=== PATIENT | female | born 1995 | race Caucasian/White ===

== ENCOUNTER 2024-03-18 03:03 | Inpatient (IN) ==
[2024-03-18] MEDS ORDERED: OXYTOCIN 30 UNITS/NSS 30 UNITS/500 ML BAG IV PRN ×2 (04:09→10:19)
[2024-03-18] MEDS ORDERED: LIDOCAINE 1% LOCAL 20 ML VIAL INFIL PRN (04:09)
--- NOTE | 2024-03-18 04:16 | History & Physical Report ---
Date of Service March 18, 2024 Assessment & Plan (1) SROM (spontaneous rupture of membranes): (2) Gestational diabetes: (3) Encounter for supervision of normal in multigravida: Plan 28 yo at 38 4/7 wga presents w/ srom VSS Fetus cat 1 Labor - can augment prn, ?if forebag palpated so could re-examine after walking a bit and admitted to see if will continue to progress A1GDM - bg q4, q2 in active GBS neg epidural prn History of Present Illness Chief Complaint: lof Primary Care Provider: NO PCP 28 yo at 38 4/7 wga presents w/ LOF since 2am. Mild ctx since and continued LOF. 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 current denies hx stis Allergies Allergy/AdvReac Type Severity Reaction Status Date / Time No Known Allergies Allergy Verified 03/17/24 11:13 Home Medications Medication Instructions Recorded Confirmed Type docosahexaenoic acid [ DHA] PO 01/21/24 03/17/24 History Patient History Medical History (Updated 03/18/24 @ 04:14 by Annita Fu MD) Varicella vaccine Family History (Updated 07/25/23 @ 10:06 by Radha Adler, RN) Denies family history of Ovarian cancer Prostate cancer Breast cancer Social History (Updated 07/25/23 @ 10:07 by Radha Adler, NARENDRA) Smoking Status: Never smoker Do You Dip or Chew Tobacco: No; marital status: marital status details: Duc Day (32) [phone] Current Living Situation: Family Current Living Situation Comment: lives with spouse, daughter, no pets current occupational status: unemployed Physical Exam Genitourinary: Manual OB Exam: + cervical dilation 3 cm, + cervical effacement 90%, + station -2 and + amniotic fluid (+nitrazine, pooling, ferning) clear OB Exam Monitor Tracing: + external FHT monitor used, + external uterine monitor used (irreg ctx) and + category I (130/mod/+accel/-decel) Results & Data Laboratory Results OB Labs: Blood Type O Positive 08/11/23 Antibody Screen NEGATIVE 08/11/23 Hemoglobin 13.0 g/dl (12.0-16.0) 08/11/23 Hematocrit 42.6 % (37.0-47.0) 08/11/23 Mean Corpuscular Volume 78.3 fL (80.0-100.0) L 08/11/23 Platelet Count 370 K/uL (130-400) 08/11/23 Rubella IgG Antibody Immune (Immune) 08/11/23 Rapid Plasma Reagin Nonreactive (Nonreactive) 08/11/23 Hepatitis B Surface Antigen. NON-REACTIVE (NON-REACTIVE) 08/11/23 Hepatitis C Antibody (EIA) NON-REACTIVE (NON-REACTIVE) 08/11/23 HIV (1&2) Ag and Ab Confirmation NON-REACTIVE (NON-REACTIVE) 08/11/23 Glucose 1 Hour 50 gm Load 195 mg/dl (70-130) H 10/29/23 OB Optional Labs: Chlamydia trachomatis RNA Not Detected (NotDetected) 08/11/23 Neisseria gonorrhoeae RNA Not Detected (NotDetected) 08/11/23 Labs Reviewed: Declines genetics--mln declines afp--[facility] failed all three values of 2 hr gtt--[facility] gbs neg--[facility] Diagnostic Findings 03/03 EFW 45%, AC 17% Coding Level of Care Code None Diagnoses SROM (spontaneous rupture of membranes) Gestational diabetes O24.419 Encounter for supervision of normal in multigravida Z34.80
[2024-03-18] MEDS: LACTATED RINGER'S 1,000 ML IV PRN (05:00)
[2024-03-18 05:03] LABS: Hematocrit (blood only) 32.6 % (37.0-47.0); Hemoglobin 9.8 g/dl (12.0-16.0); Mean Corpuscular Hemoglobin 20.4 pg (25.0-34.0); Mean Corpuscular Hgb Conc 30.1 g/dL (32.0-36.0); Mean Corpuscular Volume 67.9 fL (80.0-100.0); Mean Platelet Volume 11.2 fL (9.4-12.4); Platelet Count 273 K/uL (130-400); RDW Coefficient of Variation 17.5 % (11.5-14.5); RDW Standard Deviation 41.4 fL (36.4-46.3); White Blood Count 9.89 K/ul (4.8-10.8)
[2024-03-18] MEDS ORDERED: SODIUM CHLORIDE 0.9% PF INJ 10 ML VIAL EPI STA (05:57)
[2024-03-18] MEDS ORDERED: diphenhydrAMINE 50 MG/ML VIAL IV PRN (05:57)
[2024-03-18] MEDS ORDERED: fentaNYL citrate PF 100 MCG/2 ML VIAL EPI PRN (05:57)
[2024-03-18] MEDS ORDERED: ePHEDrine sulfate 50 MG/ML AMP IV PRN (05:57)
[2024-03-18] MEDS ORDERED: SODIUM CHLORIDE 0.9% PF INJ 10 ML VIAL EPI PRN (05:57)
[2024-03-18] MEDS ORDERED: BUPIVACAINE 0.25% PF 30 ML VIAL EPI PRN (05:57)
[2024-03-18] MEDS ORDERED: NALOXONE HCL 0.4 MG/1 ML VIAL/CARP IV PRN (05:57)
[2024-03-18] MEDS ORDERED: ROPIVACAINE 0.5% PF 5 MG/ML 20 ML VIAL EPI PRN (05:57)
[2024-03-18] MEDS ORDERED: LIDOCAINE 2% MPF LOCAL 5 ML VIAL EPI PRN (05:57)
[2024-03-18] MEDS ORDERED: NALOXONE HCL 1 MG in SODIUM CHLORIDE 0.9% 1,000 ML IV PRN (05:57)
[2024-03-18] MEDS ORDERED: ONDANSETRON INJ 2 MG/ML 2 ML VIAL IV PRN (05:57)
[2024-03-18] MEDS ORDERED: NALBUPHINE HCL INJ 10 MG/ML AMP IV PRN (05:57)
--- NOTE | 2024-03-18 05:57 | Anesthesiology Consultation ---
Date of Service March 18, 2024 Assessment & Plan ASA ASA2 Proposed Anesthesia Anesthesia Type: Labor Epidural Risk / Benefits Reviewed With: PT / POA / Parent / Guardian, Accepts Plan and Informed Consent Obtained History Height/Weight Height: 5 ft 6 in Weight: 92.986 kg Allergies Allergy/AdvReac Type Severity Reaction Status Date / Time No Known Allergies Allergy Verified 03/17/24 11:13 Medications Home Medications Medication Instructions Recorded Confirmed Last Taken vits no.124-ferrous fum 1 tab PO DAILY 03/18/24 03/18/24 03/16/24 27 mg iron-folic acid 800 mcg tablet ( Vitamin) Active Medications Generic Name Dose Route Start Last Admin Trade Name Freq PRN Reason Stop Dose Admin Fentanyl/Bupivacaine/Sodium Chlor 100 ml 03/18/24 05:57 03/18/24 06:22 Fentanyl 2 Mcg/Ml Bupivacaine 0.125%-Nss 100ml Bag EPI 03/19/24 05:56 100 ml PRN PRN Administration Pain R/T Labor Protocol Lactated Ringer's 1,000 mls @ 125 mls/hr 03/18/24 04:09 03/18/24 05:25 Lr IV 03/20/24 04:08 999 mls/hr .Q8H PRN Infusion L&D Protocol Protocol Past Medical History Medical History Varicella vaccine Exercise / Class Metabolic Activity II 4-5 Yardwork/Stairs/Walk up hill Past Family History Family History Denies family history of Ovarian cancer Prostate cancer Breast cancer Past Anesthesia History No Hx of Anesthesia Complications and No Family Hx of Anesthesia Complications History of PONV No Hx of PONV and No Hx of Motion Sickness Social History Smoking Status: Never smoker Do You Dip or Chew Tobacco: No Hx Alcohol Use: No Hx Substance Use: No Review of Systems denies fever/cough/ colds/ chest pain/ SOB/ ARTEM denies ARTEM Physical Exam Vital Signs Last Vital Signs Temp 36.9 C 03/18/24 04:57 Pulse 101 H 03/18/24 06:29 Resp 18 03/18/24 04:57 BP 111/71 03/18/24 06:29 Pulse Ox 99 03/18/24 06:29 ENMT Mouth: no TMJ abnormality and no dentition abnormality Thyromental Distance: > or= 3.5 Finger Breadths Mallampati Class: II Neck neck extension not limited Respiratory normal respiratory effort; no respiratory distress Auscultation: lungs clear to auscultation bilaterally Cardiovascular Rate/Rhythm: regular rate and regular rhythm Neurologic moves all extremities Psychiatric Orientation: alert and oriented x 3 Testing Laboratory Results 03/18/24 04:23 03/18/24 05:52 POC Glucose 122 H
[2024-03-18] MEDS: LIDOCAINE 2%/EPINEPHRINE 1:200,000 20 ML PF EPI STA (06:21)
[2024-03-18] MEDS: fentaNYL citrate PF 100 MCG/2 ML VIAL EPI STA (06:21)
[2024-03-18] MEDS: BUPIVACAINE 0.25% PF 30 ML VIAL EPI STA (06:21)
[2024-03-18] MEDS: fentANYL 2 MCG/ML BUPIVacaine 0.125%-NSS 100ML BAG EPI PRN (06:22)
--- NOTE | 2024-03-18 07:31 | Labor Progress Brief Note ---
Date of Service March 18, 2024 Subjective comfortable w/ epidural Assessment & Plan (1) SROM (spontaneous rupture of membranes): (2) Gestational diabetes: (3) Encounter for supervision of normal in multigravida: Plan 28 yo at 38 4/7 wga presents w/ srom VSS Fetus cat 1 Labor - good progress spontaneously, augment prn A1GDM - bg q4, q2 in active GBS neg epidural in place Admission and Anticipated Discharge Date Admission Date: March 18, 2024 Physical Exam Genitourinary: Manual OB Exam: + cervical dilation 5 cm, + cervical effacement 90% and + station 0 OB Exam Monitor Tracing: + external FHT monitor used, + external uterine monitor used (q5) and + category I (140/mod/+accel/early decel) Results & Data Vital Signs (Past 12 Hours) Vital Signs Temp Pulse Resp BP Pulse Ox 03/18/24 07:24 94 H 100 03/18/24 07:22 96 H 114/70 03/18/24 07:19 92 H 99 03/18/24 07:14 90 99 03/18/24 07:09 103 H 100 03/18/24 07:06 96 H 116/76 03/18/24 07:05 16 03/18/24 07:05 97.7 F 16 03/18/24 07:04 93 H 99 03/18/24 07:00 18 03/18/24 07:00 18 03/18/24 06:59 101 H 99 03/18/24 06:54 103 H 98 03/18/24 06:50 93 H 115/72 03/18/24 06:49 91 H 98 03/18/24 06:44 95 H 98 03/18/24 06:39 93 H 99 03/18/24 06:35 96 H 122/74 03/18/24 06:34 109 H 99 03/18/24 06:33 100 H 123/68 03/18/24 06:31 103 H 120/66 03/18/24 06:29 101 H 111/71 99 03/18/24 06:27 109 H 108/66 03/18/24 06:25 111 H 102/61 03/18/24 06:24 107 H 100 03/18/24 06:23 98 H 112/64 03/18/24 06:21 107 H 108/66 03/18/24 06:19 98 H 118/67 99 03/18/24 06:17 105 H 132/97 03/18/24 06:14 103 H 03/18/24 06:14 99 H 129/92 100 03/18/24 06:09 101 H 100 03/18/24 06:08 101 H 138/100 03/18/24 04:57 98.4 F 18 Coding Level of Care Code None Diagnoses SROM (spontaneous rupture of membranes) Gestational diabetes O24.419 Encounter for supervision of normal in multigravida Z34.80
[2024-03-18] MEDS: OXYTOCIN 30 UNITS/NSS 30 UNITS/500 ML BAG IV PRN (09:52)
--- NOTE | 2024-03-18 10:10 | Delivery Summary ---
Vaginal Delivery Summary Date of Service March 18, 2024 Vaginal Delivery Summary and 2nd Degree LAC Pre-operative Diagnosis: at 38 weeks labor gdm Post-operative Diagnosis: same Procedure: epidural rom second degree laceration and repair QBL: 60cc Anesthesia: epidural Procedure: The patient presented to labor and delivery in active labor. Underwent epidural and rom. She progressed to c/c/+2. The patient pushed for about 20 minutes to deliver a viable male infant in cherelle position. The nose and mouth were bulb suctioned on the perineum and the rest of the infant was then delivered without difficulty. The baby was vigorous. The nose and mouth were again bulb suctioned and the infant was placed in the maternal abdomen for drying and attention. Cord was clamped and cut at one minute. Cord blood and segment obtained. Placenta delivered spontaneous, intact with a three vessel cord. Cervix/sulci/rectum were intact. A second degree perineal laceration was repaired in the normal standard fashion. Hemostasis obtained with dilute pitocin and fundal massage. Apgars were 8/9. Mother and baby doing well at the end of the delivery[place] [facility] [place] Delivery Type Details: and 2nd Degree LAC
[2024-03-18] MEDS ORDERED: oxyCODONE/ACETAMINOPHEN 5mg/325mg TAB PO PRN (10:19)
[2024-03-18] MEDS ORDERED: ACETAMINOPHEN 325 MG TAB PO PRN (10:19)
[2024-03-18] MEDS ORDERED: HYDROCORTISONE ACETATE 25 MG SUPP PR PRN (10:19)
[2024-03-18] MEDS ORDERED: BENZOCAINE 20% SPRY 85 APPLN/85 GM CAN EXT PRN (10:19)
[2024-03-18] MEDS ORDERED: bisacodyL 10 MG SUPP PR PRN (10:19)
[2024-03-18] MEDS ORDERED: DIPHTHER/TETAN/PERTUS Vaccine (Tdap, Adol/Adult) 0.5mL IM ONE (10:19)
[2024-03-18] MEDS: fentaNYL citrate PF 100 MCG/2 ML VIAL ONE (10:37)
[2024-03-18] MEDS: BUPIVACAINE 0.25% PF 30 ML VIAL ONE (10:37)
[2024-03-18] MEDS: ePHEDrine sulfate 50 MG/ML AMP ONE (10:45)
[2024-03-18] MEDS: fentANYL 2 MCG/ML BUPIVacaine 0.125%-NSS 100ML BAG ONE (10:46)
[2024-03-18] MEDS: SODIUM CHLORIDE 0.9% PF INJ 10 ML VIAL ONE (10:46)
[2024-03-18] MEDS: LIDOCAINE 2%/EPINEPHRINE 1:200,000 20 ML PF ONE (10:46)
[2024-03-18] MEDS: IBUPROFEN 600 MG TAB PO PRN (20:38)
[2024-03-18] MEDS: DOCUSATE SODIUM 100 MG CAP PO SCH (20:38)
[2024-03-18 23:05] VITALS: O2SAT 98
--- NOTE | 2024-03-19 07:11 | Obstetrical Progress Note ---
Date of Service March 19, 2024 Assessment & Plan (1) SROM (spontaneous rupture of membranes): (2) Encounter for supervision of normal in multigravida: (3) care and examination: Plan PPD#1: Stable, continue routine care, continue OOB and ambulation, diet as tolerated Rh+, gbs -, ri Admission and Anticipated Discharge Date Admission Date: March 18, 2024 Supervising Physician Co-Signing Physician Notes Resident Physician Supervision Note: I interviewed and examined the patient. Discussed with Dr. Alvarenga and agree with findings and plan as documented in the note. Any exceptions or clarifications are listed here: Doing well this am. Routine care. PLan d/c tomorrow. Documented By: Sherri Molina MD, FACOG Subjective Tamiko is a 28yo who is PPD#1 following at 38 weeks. She reports minimal pain/abdominal cramping. She has been eating, drinking, ambulating, and urinating normally. Having appropriate lochia. Currently breast feeding but has concerns about her milk supply, as compared to her prev . Review of Systems 2 Constitutional: no fever, no chills and no sweats Respiratory: no dyspnea Cardiovascular: no chest pain, no palpitations and no calf pain Genitourinary: no dysuria Neurologic: no headache(s) Physical Exam 2 Physical Exam: General: Alert, oriented. No acute distress. Cardiac: Regular rate and rhythm, no murmurs, rubs, or gallops. Respiratory: Clear to auscultation bilaterally, no wheezes/rales/rhonchi. No increased work of breathing. Symmetrical chest rise. No respiratory distress. Abdomen: Soft, nontender, nondistended. Bowel sounds present. Uterine fundus firm. Lower extremities: No lower extremity edema or swelling. No deep calf pain. Results & Data Vital Signs (Past 12 Hours) Vital Signs Temp Pulse Resp BP Pulse Ox O2 Del Method 03/19/24 03:40 36.4 C L 88 16 125/86 98 Room Air 03/18/24 23:04 36.7 C 88 18 110/71 98 Room Air 03/18/24 19:28 36.9 C 88 16 122/84 99 Room Air Laboratory Results 03/19/24 06:49 Resident Activity Tracking Resident Involvement: Resident Care Provided Care Provided: [facility]
[2024-03-19 07:33] LABS: Hematocrit (blood only) 29.7 % (37.0-47.0)
[2024-03-19] MEDS: PRENATAL VITAMIN 1 TAB PO SCH (08:43)
--- NOTE | 2024-03-19 09:56 | Anesthesia Procedure Note ---
Date of Service March 19, 2024 Anesthesia Post Epidural Note Vital Signs Vital Signs: Temp Pulse Resp BP Pulse Ox O2 Del Method 36.7 C 74 20 110/64 98 Room Air 03/19/24 09:21 03/19/24 09:21 03/19/24 09:21 03/19/24 09:21 03/19/24 03:40 03/19/24 03:40 Pain Intensity Lower Abdomen: Pain Intensity: 2 Notes Mental Status: alert / awake / arousable and participated in evaluation Nausea / Vomiting: adequately controlled Pain: adequately controlled Airway Patency, RR, SpO2: stable & adequate BP & HR: stable & adequate Hydration State: stable & adequate Neuraxial Anesthesia: was administered and sensory block is resolving Anesthetic Complications: no major complications apparent Epidural: Removed without complications and With tip intact
[2024-03-19 15:36] VITALS: BP 126/77; PULSE 82; RESP 16; TEMP 97.9
[2024-03-19] MEDS ORDERED: bisacodyL 5 MG TABEC PO SCH (20:00)
== END 2024-03-19 20:10 | disposition home or self-care (01) | DRG 807 ==
LOC: 4S1 03:03 → OPB 03:03 → 4S1 04:09 → 4E2 12:17